=== PATIENT | male | born 2000 | race Caucasian/White ===

== ENCOUNTER 2018-09-27 09:25 | Emergency (ER) | payer BC ==
[~2018-09-27] VITALS: Wt 79.7 kg
[2018-09-27 09:26] VITALS: BP 121/71; PULSE 78; RESP 18
[2018-09-27] MEDS ORDERED: HYDROCODONE/APAP (5/325) TAB PO ONE ×2 (10:00→11:00)
[2018-09-27] MEDS ORDERED: DIPHTH/TET/ACEL PERTUSS (ADULT) 0.5 ML VIAL IM* ONE (10:00)
--- NOTE | 2018-09-27 10:00 | ERD ---
ER Documentation Chief Complaint Chief Complaint R HAND PAIN AFTER PUNCHING A WALL HPI This is a 18-year-old male who presents ED with right hand pain status post punching wall earlier this morning. Patient states that he extremely angry so he punched the wall. Admits to pain along the dorsal medial right hand. Admits to some painful range of motion. Denies tingling, numbness, lack sensation, decreased range of motion in all other symptoms. Admits to having a prior injury along this right hand in the same area. Admits to tobacco use. unsure if tetanus utd ROS All systems reviewed and are negative except as per history of present illness. Allergies Allergies: Coded Allergies: No Known Allergy (Unverified , 09/27/18) PMhx/Soc Medical and Surgical Hx: pt denies Medical Hx, pt denies Surgical Hx, Unable to obtain Hx Alcohol Use: No Hx Substance Use: No Hx Tobacco Use: Yes Smoking Status: Current every day smoker Physical Exam Vitals Vital Signs Date Temp Pulse Resp B/P (MAP) Pulse Ox O2 O2 Flow FiO2 Time Delivery Rate 09/27/18 98.1 78 18 121/71 99 09:26 (88) Physical Exam Physical Exam Vitals signs: Reviewed by me. General: Well developed, well nourished, in no acute distress. Patient is awake and alert. Head: Normocephalic, atraumatic. Eyes: Normal conjunctiva, Pupils PERRLA, EOM intact grossly ENT: Pharynx is clear, Moist mucous membranes, external ears, nose and mouth normal MSK: Upper Extremity -right Skin: There is deformity along the right dorsal medial hand with swelling and a couple small abrasions Compartments: Soft Motor: Full active range of motion shoulder/elbow/wrist/hand Sensation: Intact shoulder/pinky/middle finger/thumb web space Bones: Moderate tenderness palpation along the right dorsal medial hand , nontender humerus/elbow/forearm/wrist/ Snuffbox: Nontender Joints: No effusion Pulses/Perfusion: 2+ radial, Capillary refill < 2 seconds Neurologic: Alert and oriented, moving all extremities, normal speech, no focal weakness, no cerebellar signs. Normal mentation Skin: warm and dry, No rash Psych: Normal mood Results 24 hrs Current Medications Medications Dose Sig/Amanda Start Time Status Last (Trade) Ordered Route PRN Stop Time Admin Dose Reason Admin Diphtheria/ 0.5 ml ONCE ONCE 09/27/18 DC 09/27/18 Tetanus/Acell IM* 10:00 09:47 Pertussis 09/27/18 10:02 (Adacel) 1 tab ONCE ONCE 09/27/18 DC 09/27/18 Acetaminophen PO 10:00 09:46 / 09/27/18 10:02 Hydrocodone Bitart ([place] (5/)) Procedures/MDM EKG, MONITORS, & DIAGNOSTIC IMAGING: [place] [address] Radiology Main Line: [phone] DIAGNOSTIC IMAGING REPORT Patient: ALEXEY GOLDSTEIN : 2000 Age: 18 Sex: M MR #: [id number] DOS: 09/27/18 0937 Ordering MD: TRISTON STEPHENSON PA-C Location: [facility] Room/Bed: PROCEDURE: Right hand x-ray CLINICAL INDICATION: Punched wall. Right hand injury. Pain. TECHNIQUE: AP, lateral and oblique views of the right hand were obtained. COMPARISON: None FINDINGS: There is normal mineralization. There is an acute fracture of the right mid fifth metacarpal with anteromedial displacement and dorsal apex angulation. There are no significant degenerative changes. Soft tissue swelling overlies the dorsomedial hand. IMPRESSION: 1. Acute fracture of the right fifth metacarpal with anteromedial displacement and dorsal apex angulation. 2. Soft tissue swelling overlying the dorsomedial hand. RPTAT: HRSR Physician Jimenez Date Time Electronically viewed and signed by Physician Jimenez on 09/27/2018 10:04 RR/ CC: TRISTON STEPHENSON PA-C [id number] PROCEDURES: Splint Type: right volar split Extremity: RUE Indication: boxers fx Splint Assessment: Neurovascularly intact post splint placement with good fit. The patient was consented at bedside prior to splint application and states understanding of risks, benefits, and alternatives. The patient was neurovascularly intact prior to and status post application of the splint. The patient tolerated the procedure well and there were no complications ER COURSE: The patient was given norco for pain The medication was well tolerated and the patient reports improvement in symptoms. The patient was stable throughout ED course. I kept the patient and/or family informed of laboratory and diagnostic imaging results throughout the emergency room course. The patient was promptly evaluated and a treatment plan was devised based on H&P and other data. This plan was discussed with the patient who agreed and had no further questions or concerns prior to discharge. MEDICAL DECISION MAKIN-year-old male presents ED with acute fracture of the fifth right metacarpal with displacement that was sustained this morning while punching a wall. Patient will likely need orthopedic surgery for this fracture. Discussed case with overseeing physician and she advises to place patient in a volar splint and have him follow-up with orthopedic surgery in the next 24-48 hours. History and physical examination other data not consistent with emergent processes including but not limited to open fracture, dislocation, tendon rupture, ischemia, neurovascular injury, compartment syndrome, septic joint, avascular necrosis, osteomyelitis, necrotizing fasciitis, septic joint, septic arthritis, or other emergent conditions. Patient's vitals are stable and can be managed outpatient with close follow-up. Advised patient to follow-up with primary care in the next 48 hours. Return to ED with any worsening symptoms. DISPOSITION PLAN: We discussed follow up with the patient's primary care doctor within 24 to 48 hours. Patient counseled regarding my diagnostic impression and care plan. Prior to discharge all questions answered. Pt agrees with treatment plan and understands strict return precautions. Precautionary instructions provided including instructions to return to the ER if not improving or for any worsening or changing symptoms or concerns. SPECIALIST FOLLOW UP RECOMMENDED: orthopedic surgery Patient has been advised to follow up with primary care in 1-2 days. Disclaimer: Inadvertent spelling and grammatical errors are likely due to EHR/dictation software use and do not reflect on the overall quality of patient care. Also, please note that the electronic time recorded on this note does not necessarily reflect the actual time of the patient encounter. Departure Diagnosis: Primary Impression: Boxers fracture Encounter type: initial encounter Fracture type: closed Qualified Codes: S62.339A - Displaced fracture of neck of unspecified metacarpal bone, initial encounter for closed fracture Condition: Stable Patient Instructions: FractureIsi's Referrals: [facility] Additional Instructions: Patient advised to follow-up with process laboratory specialist in the next 24-48 hours. Patient advised to return to the ED immediately for new or worsening symptoms. Patient advised to follow up with primary care provider in the next 24-48 hours. Patient verbalized understanding and agrees with treatment plan and course of action. If patient has no primary care they may follow up with one of the community clinics listed on the following page or one of the options listed below [facility] [address] [place] [id number] or [facility] [address] [place] [address] or [facility] [address] [place] [address] TRISTON STEPHENSON PA-C Sep 27, 2018 10:00
[2018-09-27] MEDS ORDERED: HYDR-4011 PO (10:30)
[2018-09-27] MEDS ORDERED: IBUP-1542 PO (10:30)
== END 2018-09-27 12:18 | disposition home or self-care (01) ==
LOC: FTE 09:25
DX: S62.336A Displaced fracture of neck of fifth metacarpal bone, right hand, initial encounter for closed fracture (principal); F17.210 Nicotine dependence, cigarettes, uncomplicated; W22.01XA Walked into wall, initial encounter; Y92.9 Unspecified place or not applicable; Z23 Encounter for immunization
CPT/HCPCS: 29125; 73130; 90715; Z7610; 90471